=== PATIENT | male | born 1985 | race Caucasian/White ===

== ENCOUNTER 2020-11-25 19:02 | Emergency (ER) | payer OTHER ==
[2020-11-25] MEDS ORDERED: Bacitracin Oint 1 GM U/D Packet TOP ONE (19:56)
[2020-11-25] MEDS ORDERED: Diphtheria,Pertussis(Acell),Tetanus Vaccine 0.5 ML Syringe IM ONE (19:56)
--- NOTE | 2020-11-25 20:40 | EDM.PDOC ---
ED HPI GENERAL MEDICAL PROBLEM - General Chief Complaint: Laceration Stated Complaint: CUT FINGER ON RIGHT HAND Time Seen by Provider: 11/25/20 19:55 Source of Information: Reports: Patient History Limitations: Reports: No Limitations - History of Present Illness INITIAL COMMENTS - FREE TEXT/NARRATIVE: Devon is a 35-year-old male presenting to the ED for evaluation of injury to his right hand. 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 He was using a steak pounder and at one downstroke the steak broke and his hand got caught between the steak and the pounder causing deep lacerations to the dorsal aspect of his right fourth and fifth fingers around the area of the PIP. Patient has intact range of motion and denies any distal numbness or tingling. Patient's last tetanus was in 2013. There was some debris in the wounds from dirt. - Related Data Allergies Allergy/AdvReac Type Severity Reaction Status Date / Time Penicillins Allergy Rash Verified 11/25/20 20:00 Home Meds: Home Meds lisinopriL [Lisinopril] 1 tab PO DAILY 11/25/20 [History] Past Medical History Cardiovascular History: Reports: Hypertension Musculoskeletal History: Reports: Gout Oncologic (Cancer) History: Reports: Other (See Below) Other Oncologic History: testicular cancer age 18 - right testicle removed - Infectious Disease History Infectious Disease History: Reports: C-Difficile - Past Surgical History HEENT Surgical History: Reports: Myringotomy w Tube(s) GI Surgical History: Reports: Hernia Repair/Other Social & Family History - Tobacco Use Tobacco Use Status *Q: Never Tobacco User - Caffeine Use Caffeine Use: Reports: Coffee - Recreational Drug Use Recreational Drug Use: No ED ROS GENERAL - Review of Systems Review Of Systems: See Below Constitutional: Reports: No Symptoms Musculoskeletal: Reports: Hand Pain (Right hand due to lacerations to the dorsal fourth and fifth fingers) Skin: Reports: Wound (Sizable lacerations to the dorsal fourth and fifth fingers measuring 3.3 cm over the fourth finger and almost 9 cm on the fifth finger of the right hand) Neurological: Reports: No Symptoms ED EXAM, SKIN/RASH Exam: See Below Exam Limited By: No Limitations General Appearance: Alert, No Apparent Distress Peripheral Pulses: 2+: Radial (R) Extremities: Normal Range of Motion, Normal Capillary Refill, Other (There is a 3.3 cm laceration on the dorsal right fourth finger which is linear. There is a complicated multiflap laceration on the dorsal fifth finger distal to the PIP measuring 9 cm combined.) Neurological: Alert, Oriented, No Motor/Sensory Deficits Skin: Wound/Incision (Lacerations to the dorsal fourth and fifth fingers on the right hand) Location, Skin: Upper Extremity, Right ED SKIN PROCEDURES - Laceration/Wound Repair Right Dorsal Digit - 4th (Ring) Appearance: Subcutaneous Distal NVT: Neuro & Vascular Intact Anesthetic Type: Local Local Anesthesia - Lidocaine (Xylocaine): 1% Plain Local Anesthetic Volume: 3cc Skin Prep: Chlorhexidine (Hibiciens) Exploration/Debridement/Repair: Wound Explored, In a Bloodless Field, Explored to Base Closed with: Sutures Lac/Wound length In cm: 3.3 Suture Size: 4-0 # of Sutures: 6 Suture Type: Nylon, Interrupted Sterile Dressing Applied: Provider Tetanus Status Addressed: Yes Complications: No Right Dorsal Digit - 5th (Baby) Appearance: Subcutaneous Distal NVT: Neuro & Vascular Intact Anesthetic Type: Local Local Anesthesia - Lidocaine (Xylocaine): 1% Plain Local Anesthetic Volume: 3cc Skin Prep: Chlorhexidine (Hibiciens) Exploration/Debridement/Repair: Wound Explored, In a Bloodless Field, Explored to Base, Foreign Material Removed, Multiple Flaps Aligned Closed with: Sutures Lac/Wound length In cm: 9 Suture Size: 4-0 # of Sutures: 14 Suture Type: Nylon, Interrupted Sterile Dressing Applied: Provider Tetanus Status Addressed: Yes Complications: No Course - Vital Signs Last Recorded V/S: Last Vital Signs Temp 36.2 C 11/25/20 19:58 Pulse 88 11/25/20 19:58 Resp 16 11/25/20 19:58 BP 170/97 H 11/25/20 19:58 Pulse Ox 98 11/25/20 19:58 - Orders/Labs/Meds Orders: Active Orders 24 hr Category Date Time Status Vaccine to be Administered/Admin Charge [RC] ASDIRECTED Care 11/25/20 19:56 Active Meds: Medications Discontinued Medications Generic Name Dose Route Start Last Admin Trade Name Freq PRN Reason Stop Dose Admin Bacitracin 1 dose 11/25/20 19:56 11/25/20 20:15 Bacitracin Oint 1 Gm U/D Packet TOP 11/25/20 19:57 1 dose ONETIME ONE Administration Diphtheria/Tetanus/Acell Pertussis 0.5 ml 11/25/20 19:56 11/25/20 20:16 Diphtheria,Pertussis(Acell),Tetanus Vaccine 0.5 Ml Syringe IM 11/25/20 19:57 0.5 ml .ONCE ONE Administration Lidocaine HCl 5 ml 11/25/20 19:56 11/25/20 20:16 Lidocaine 1% 5 Ml Sdv INJECT 11/25/20 19:57 5 ml ONETIME ONE Administration Departure - Departure Time of Disposition: 20:47 Disposition: Home, Self-Care 01 Clinical Impression: Laceration of right ring finger w/o foreign body w/o damage to nail Qualifiers: Encounter type: initial encounter Qualified Code(s): S61.214A - Laceration without foreign body of right ring finger without damage to nail, initial encounter Laceration of right little finger w/o foreign body w/o damage to nail Qualifiers: Encounter type: initial encounter Qualified Code(s): S61.216A - Laceration without foreign body of right little finger without damage to nail, initial encounter - Discharge Information Instructions: Laceration Care, Adult, [id number], Sutures, [place], or Adhesive Wound Closure, [id number] Referrals: PCP,None [Primary Care Provider] - Forms: ED Department Discharge Care Plan Goals: Because this was a dirty wound we are going to start you on antibiotic. I am putting you on cephalexin 500 mg 3 times a day for 5 days. The sutures will need to be removed in 10 days which can be done at your local doctor's office. Please keep the wound clean and dry for at least the next 24 hours. Please keep the dressing in place for the next several days to protect the wounds. Return if any sign of infection begins. Sepsis Event Note (ED) - Evaluation Sepsis Screening Result: No Definite Risk - Focused Exam Vital Signs: Vital Signs Temp Pulse Resp BP Pulse Ox 11/25/20 19:58 36.2 C 88 16 170/97 H 98 - Problem List & Annotations (1) Laceration of right ring finger w/o foreign body w/o damage to nail SNOMED Code(s): 64279444322633681, 82649669847845986 Code(s): S61.214A - LACERATION W/O FB OF R RNG FNGR W/O DAMAGE TO NAIL, INIT Status: Acute Priority: Medium Current Visit: Yes Qualifiers: Encounter type: initial encounter Qualified Code(s): S61.214A - Laceration without foreign body of right ring finger without damage to nail, initial encounter (2) Laceration of right little finger w/o foreign body w/o damage to nail SNOMED Code(s): 58735248706761463, [id number] Code(s): S61.216A - LAC W/O FB OF R LITTLE FINGER W/O DAMAGE TO NAIL, INIT Status: Acute Priority: Medium Current Visit: Yes Qualifiers: Encounter type: initial encounter Qualified Code(s): S61.216A - Laceration without foreign body of right little finger without damage to nail, initial encounter - Problem List Review Problem List Initiated/Reviewed/Updated: Yes - My Orders Last 24 Hours: My Active Orders 11/25/20 19:56 Vaccine to be Administered/Admin Charge [RC] ASDIRECTED - Assessment/Plan Last 24 Hours: My Active Orders 11/25/20 19:56 Vaccine to be Administered/Admin Charge [RC] ASDIRECTED
== END 2020-11-25 20:56 | disposition home or self-care (01) ==
LOC: JP.ED 19:02
DX: S61.214A Laceration without foreign body of right ring finger without damage to nail, initial encounter (principal); S61.216A Laceration without foreign body of right little finger without damage to nail, initial encounter; I10 Essential (primary) hypertension; M10.9 Gout, unspecified; Z88.0 Allergy status to penicillin; Z79.899 Other long term (current) drug therapy; Z23 Encounter for immunization; W26.8XXA Contact with other sharp object(s), not elsewhere classified, initial encounter
CPT/HCPCS: 12004; 90471; 90715; 99282-25